=== PATIENT | female | born 1980 | race Caucasian/White ===

== ENCOUNTER 2018-04-26 16:48 | Emergency (ER) | payer SELFPAY ==
[~2018-04-26] VITALS: Ht 157.5 cm; Wt 70.3 kg
[2018-04-26 16:53] VITALS: BP 133/94
--- NOTE | 2018-04-26 17:55 | NUR ---
PT REASSES WITH VSS AT THIS TIME
--- NOTE | 2018-04-26 18:17 | NUR ---
PT AMBULATED TO BED 03.
--- NOTE | 2018-04-26 18:39 | NUR ---
PATIENT PRESENTS TO ED WITH THE CHIEF C/O LLQ ABDOMINAL PAIN SINCE YESTERDAY. PT STATES PAIN RADIATES TO LEFT LEG AND LOWER BACK. REPORTS BLOOD IN URINE. DENIES FREQUENCY OR BURNING URINATION. DENIES N/V/D SKIN IS PINK/WARM/DRY; AAOX4 WITH EVEN AND STEADY GAIT. PT DENIES ANY FEVER, CP, SOB, OR COUGH AT THIS TIME; PATIENT STATES PAIN OF 9/10 AT THIS TIME. VSS. PATIENT POSITIONED FOR COMFORT; HOB ELEVATED; BEDRAILS UP X2; BED DOWN. ER MD MADE AWARE OF PT STATUS.
[2018-04-26] MEDS ORDERED: KETOROLAC 60 MG/2 ML VIAL IM ONE (19:00)
[2018-04-26 19:23] LABS: BASOPHILS # (AUTO) 0.1 K/uL (0.00-0.22); BASOPHILS % (AUTO) 1.2 % (0.0-2.0); EOSINOPHILS # (AUTO) 0.1 K/uL (0-0.4); EOSINOPHILS % (AUTO) 0.5 % (0.0-4.0); HEMOGLOBIN 11.7 g/dL (12.0-16.0); LYMPHOCYTES # (AUTO) 2.5 K/uL (2.5-16.5); LYMPHOCYTES % (AUTO) 21.9 % (20.5-51.1); MEAN CORPUSCULAR HEMOGLOBIN 27 pg (27-31); MEAN CORPUSCULAR HGB CONC 33 g/dL (33-37); MEAN CORPUSCULAR VOLUME 83.4 fL (80-94); MONOCYTES # (AUTO) 0.9 K/uL (0.8-1.0); MONOCYTES % (AUTO) 7.8 % (1.7-9.3); NEUTROPHILS # (AUTO) 7.9 K/uL (1.8-7.7); NEUTROPHILS % (AUTO) 68.6 % (42.2-75.2); PLATELET COUNT (AUTO) 270 K/uL (140-450); RED BLOOD CELL COUNT(AUTO) 4.32 MIL/uL (4.20-5.40); RED CELL DISTRIBUTION WIDTH 14.7 % (11.6-13.7); WHITE BLOOD COUNT (AUTO) 11.6 K/uL (4.8-10.8)
--- NOTE | 2018-04-26 19:25 | NUR ---
REPORT GIVEN TO [employer] PROGRAM MANAGER RN FOR CONTINUITY OF CARE.
[2018-04-26 19:33] LABS: APPEARANCE,URINE CLEAR (CLEAR); BILIRUBIN,URINE NEGATIVE (NEGATIVE); BLOOD, URINE NEGATIVE (NEGATIVE); COLOR,URINE YELLOW (YELLOW); LEUKOCYTE ESTERASE ,URINE NEGATIVE (NEGATIVE); NITRITE, URINE NEGATIVE (NEGATIVE); UGLUCOSE NEGATIVE (NEGATIVE)
[2018-04-26 19:34] LABS: ANION GAP 14.8 (8-16); CARBON DIOXIDE 25.9 mmol/L (21-32); CREATININE 0.7 mg/dL (0.6-1.3); POTASSIUM 3.7 mmol/L (3.5-5.1)
--- NOTE | 2018-04-26 21:56 | NUR ---
Dr. Bledsoe evaluating patient at bedside.
[2018-04-26 22:10] VITALS: BP 107/70
--- NOTE | 2018-04-26 22:10 | NUR ---
Patient discharged with v/s stable. Written and verbal after care instructions given and explained. Patient alert, oriented and verbalized understanding of instructions. Ambulatory with steady gait. All questions addressed prior to discharge. ID band removed. Patient advised to follow up with PMD. Rx of ZOFRAN 8MG, MOTRIN 800MG AND NORCO 5MG-325MG given. Patient educated on indication of medication including possible reaction and side effects. Opportunity to ask questions provided and answered.
== END 2018-04-26 22:10 | disposition home or self-care (01) ==
LOC: MED 16:48
DX: R10.32 Left lower quadrant pain (principal); R11.0 Nausea; Z88.0 Allergy status to penicillin; Z90.49 Acquired absence of other specified parts of digestive tract
CPT/HCPCS: 36415; 76830; 80048; 81003; 81025; 85025; 93976; 96372; 99284; J1885; Q0092

== ENCOUNTER 2023-10-09 22:31 | Emergency (ER) | payer OTHER ==
[~2023-10-09] VITALS: Ht 157.5 cm; Wt 77.1 kg
[2023-10-09 22:44] VITALS: BP 129/88; PULSE 86; RESP 18; TEMP 98.5; O2SAT 98
[2023-10-09 23:06] VITALS: BP 129/88; PULSE 86; RESP 18; TEMP 98.5
[2023-10-09 23:13] VITALS: O2SAT 98
[2023-10-09] MEDS ORDERED: MUPI1OIN TP (23:51)
[2023-10-09] MEDS ORDERED: IBUP-2213 PO (23:51)
[2023-10-09] MEDS ORDERED: ACET500T99 PO (23:51)
[2023-10-09] MEDS ORDERED: VALA1TAB40 PO (23:51)
[2023-10-09] MEDS ORDERED: DOXY100T9 PO (23:54)
[2023-10-10 00:02] LABS: APPEARANCE,URINE CLEAR (CLEAR); BILIRUBIN,URINE NEGATIVE (NEGATIVE); BLOOD, URINE NEGATIVE (NEGATIVE); COLOR,URINE YELLOW (YELLOW); LEUKOCYTE ESTERASE ,URINE NEGATIVE (NEGATIVE); NITRITE, URINE NEGATIVE (NEGATIVE); PROTEIN,URINE NEGATIVE (NEGATIVE); UGLUCOSE NEGATIVE (NEGATIVE); UROBILINOGEN,URINE 0.2 EU/dL (0.2 - 1)
[2023-10-10 00:38] LABS: HIV RAPID SCREEN NON-REACTIVE (NON REACTIV)
[2023-10-10 08:59] LABS: RAPID PLASMA REAGIN NON-REACTIVE (Non Reactiv)
== END 2023-10-10 00:11 | disposition home or self-care (01) ==
LOC: MED 22:31
DX: R23.8 Other skin changes (principal); Z79.1 Long term (current) use of non-steroidal anti-inflammatories (NSAID); Z79.899 Other long term (current) drug therapy; Z88.0 Allergy status to penicillin
CPT/HCPCS: 36415; 81003; 81025; 86592; 87491; 87529; 99283